=== PATIENT | male | born 1985 | race Caucasian/White ===

== ENCOUNTER 2021-07-01 18:14 | Emergency (ER) | payer OTHER, SELFPAY ==
[2021-07-01 18:14] VITALS: BP 146/90; PULSE 79; RESP 15; TEMP 36.9; O2SAT 99; BMI 21.1
--- NOTE | 2021-07-01 18:37 | EX.ED.UPPERE ---
HPI History of Present Illness Chief Complaint: Upper Extremity Injury Narrative Narrative: Patient presents for injury to his left hand. He states he fell a few weeks ago and noticed a lump on the dorsum of his left hand. He thought it was either hematoma or a ganglion cyst. He fell again 3 days ago and now has pain that is worse with movement in the same area. He denies any proximal wrist pain or elbow pain. No other injury. He is left-hand dominant. PFSH PFS Medical History no medical history Allergy/AdvReac Type Severity Reaction Status Date / Time No Known Allergies Allergy Verified 07/01/21 18:17 Surgical History no surgical history Social History Smoking Status: Current every day smoker tobacco type: cigarettes ROS ROS ED ROS Narrative Constitutional: No fever, no chills. HEENT: No sore throat. No neck pain. No loss of vision. No rhinorrhea. Cardiovascular: No chest pain. No palpitations. No pedal edema. Respiratory: No cough, no shortness of breath. Abdominal: No abdominal pain. No nausea. No vomiting. Genitourinary: No dysuria. No hematuria. Musculoskeletal: Left dorsum of hand with lump, and pain worse with movement. Neurologic: No headaches. No dizziness. No lightheadedness. Skin: No rash. No change in color. Psychiatric: No depression. No anxiety. EXAM Physical Exam Narrative Exam Narrative: Afebrile. Vital signs noted. HEENT: Normocephalic. Atraumatic. PERRL, EOMI. Neck soft and supple. No point tenderness or step off. Cardiovascular: Regular rate and rhythm. No murmurs, rubs, or gallops appreciated. Respiratory: No tachypnea. Lungs clear to auscultation bilaterally. Gastrointestinal: Abdomen soft, nontender, with normoactive bowel sounds. No rebound or guarding. Neurological: Awake. Alert. Nonfocal, nonlateralizing. Skin: No rash. Normal color. No pallor. Musculoskeletal: No pedal edema. He does have a large cystlike structure on the dorsum of his left hand over his carpal bones. No distal radius or ulnar tenderness. Mild swelling and tenderness to palpation over carpal bones. Able to oppose thumb. Abduction and abduction of fingers intact. Elbow flexion, pronation, and supination are intact. Palpable radial pulse. No anatomical snuffbox tenderness. Const Vital Signs: 07/01/21 18:14 Temperature 98.4 F Temperature Source Temporal Pulse Rate 79 Respiratory Rate 15 Blood Pressure 146/90 H Blood Pressure Mean 108 Pulse Ox 99 Oxygen Delivery Method Room Air MDM MDM MDM Narrative Medical decision making narrative: X-rays were obtained of the left hand, 3 views, which were read by radiology as no evidence of fracture, soft tissue appears normal. At this point in time, he will be placed in a cock-up splint for comfort. I feel he can be discharged safely home with follow-up to her primary care physician. He was given a note to be off work today and tomorrow. Disposition is discharged home in stable condition. Discharge Plan Triage Chief Complaint: Upper Extremity Injury ED Provider: Alec Mayorga Dx/Rx/DC Orders Clinical Impression: Contusion of hand, left, Sprain of hand, left Instructions: ED Hand Contusion, ED Hand Sprain Stand Alone Forms: ED Work / School Excuse Primary Care Provider: Care Physician,No Primary Referrals: Joey Nguyen MD [STAFF PHYSICIAN] - 1 Week if not improving Care Physician,No Primary [Primary Care Provider] - Disposition Disposition: Home, Self Care
--- NOTE | 2021-07-01 19:00 | RAD_ITS ---
STUDY: XR Hand Min 3 Views REASON FOR EXAM: Male, 36 years old. PAIN TECHNIQUE: XR Hand Min 3 Views COMPARISON: None. FINDINGS: Normal radiocarpal articulation. Normal distal radioulnar joint. Normal visualized carpal bones. Normal carpal articulations Normal carpometacarpal articulation of the thumb. Normal second through fifth carpometacarpal joints. Normal metacarpi. Normal metacarpophalangeal joint of the thumb. Normal interphalangeal joint of the thumb. Normal proximal and distal phalanges of the thumb. Normal metacarpophalangeal joints of the second through fifth fingers. Normal proximal and distal interphalangeal joints of the second through fifth fingers. Normal phalanges of the second through fifth fingers. The soft tissue structures are unremarkable. RAD/Hand Min 3 Views IMPRESSION: There are no acute findings. Electronically Signed: Jose Guadalupe Yates MD at 19:31 EST ,
== END 2021-07-01 19:59 | disposition home or self-care (01) ==
PROVIDERS: Emergency Provider Emergency Medicine; Visit Provider Emergency Medicine
DX: S60.222A Contusion of left hand, initial encounter (principal); S63.92XA Sprain of unspecified part of left wrist and hand, initial encounter; F17.210 Nicotine dependence, cigarettes, uncomplicated; W19.XXXA Unspecified fall, initial encounter
CPT/HCPCS: 73130; 99283